=== PATIENT | female | born 1945 | race Caucasian/White ===

== ENCOUNTER → 2018-12-16 | Outpatient (CLI) | payer OTHER ==
[~2018-12-16] MED LIST: ADULT LOW DOSE81 MG PO; ALPRAZOLAM; B COMPLEX-VITA1 EACH PO; BYSTOLIC 5 MG5 M1 PO; CALCIUM PO; FLUOXETINE HCL20 M1 PO; MULTIVITAMINS; NORVASC PO; PROZAC 20 MG20 M1 PO; VITAMIN B-12500 MCG PO; VITAMIN D400 UNI1 PO; VITAMINC500 PO; blood pressure
--- NOTE | 2018-12-16 14:32 | CARDNUC ---
[place] [address] CARDIAC NUCLEAR IMAGING REPORT Name: WILIRALPH Loli Room: [facility]#: [id number] Admission: 12/16/18 Attend Phys: Zac Peters, Discharge: Date of : 41 Date of Service: 12/16/18 1432 Report #: [id number] THIS REPORT FOR: //name// APPROVED REPORT Imaging Protocol: Rest Tc-99m/Stress Tc-99m 1 day Study performed: 12/16/2018 07:30:00 Indication: CAD Patient Location: Out-Patient Stress Tech: Hallie Laguna Stress Nurse: Aleyda Paul RN NM Tech:NAOMIE Frausto Ht: 5 ft 2 in Wt: 122 lbs BSA: 1.55 m2 BMI: 22.31 Medical History Medical History: CAD non obstructive, Fatigue, HTN, Hyperlipidemia, Palpitations. Medications: Bystolic, Losartan K+, HCTZ, ASA 81 mg, Atorvastatin. Allergies: No known drug allergies Cardiac Risk Factors: Age, , FHX of CAD, HTN, Hyperlipidemia. Previous Cardiac Procedures: None Pretest Chest Pain Characteristics: No chest pain Exercise History: Indeterminate Physical Disabilities: Back Meds Held (24 hrs): Bystolic Resting Data Rest SPECT myocardial perfusion imaging was performed in supine position 30 minutes following the intravenous injection of 11.0 mCi of Tc-99m Sestamibi. Time of rest injection: 0750 Date: 12/16/2018 Time of rest imagin The images were gated to evaluate regional wall motion and calculate left ventricular ejection fraction. Administration Route: IV Administration Site: Right Arm Pharmacologic Stress Pharmacologic stress test was performed by injecting Regadenoson 0.4 mg IV push over 10-15 seconds immediately followed by the intravenous injection of 33.9 [place] [address] CARDIAC NUCLEAR IMAGING REPORT Name: RALPH RASHEED Room: [facility] Pate#: [id number] Admission: 12/16/18 Attend Phys: Zac Peters, Discharge: Date of : 41 Date of Service: 12/16/18 1432 Report #: [id number] Tc-99m Sestamibi. Time of stress injection: 0935 Time of stress imagin Administration Route: IV Administration Site: Right Arm Gated Stress SPECT was performed 40 minutes after stress injection. The images were gated to evaluate regional wall motion and calculate left ventricular ejection fraction. Prone imaging was performed. Stress Test Details Stress Test: Pharmacologic stress was paired with low level exercise. Reason for pharmacologic stress test: Arthritis.. HR Max Heart Rate (APMHR): 145 bpm Resting HR: 64 bpm Target HR (85% APMHR): 123 bpm Max HR Achieved: 103 bpm % of APMHR: 71 Recovery HR: 75 bpm BP Resting BP: 151/75 mmHg Max BP: 126/67 mmHg Recovery BP: 131/68 mmHg ECG Resting ECG: Sinus Rhythm, nonspecific ST-T abnormalities Stress ECG: Sinus Rhythm, nonspecific ST-T abnormalities ST Change: None Arrhythmia: None Recovery ECG: Sinus Rhythm, nonspecific ST-T abnormalities Recovery ST Change: None Recovery Arrhythmia: None Clinical Reason for Termination: Completed protocol Stress Symptoms: [place], lightheaded, stomach fullness. Exercise duration: 4 min 00 sec Exercise capacity: 2.30 METs The patient had no significant cardiac symptoms with Lexiscan infusion. Nurse Comments 73 year old female presented with HX of heart palpitations. Patient able to walk a slow, flat treadmill with Lexiscan for four minutes. [place] [address] CARDIAC NUCLEAR IMAGING REPORT Name: RALPH RASHEED Room: [facility]#: [id number] Admission: 12/16/18 Attend Phys: Zac Peters, Discharge: Date of : 41 Date of Service: 12/16/18 1432 Report #: [id number] Lexiscan. Symptoms relieved with PO caffeine. Recovery unremarkable. Patient escorted by staff to Nuclear Medicine for images. Patient stable with no complaints at that time. Stress ECG Conclusion The baseline 12-lead EKG shows sinus rhythm with diffuse ST segment depression. EKGs obtained during and post Lexiscan infusion show sinus rhythm with persistent diffuse ST segment depression. There were no stress-induced arrhythmias. Study Quality Study: Good Artifact: No artifact Study Data At rest, the left ventricular ejection fraction was 78%.. Post stress, the left ventricular ejection was 73%.. TID = 1.01. Perfusion Normal left ventricular perfusion. Wall Motion Normal left ventricular wall motion. Nuclear Conclusion ECG Findings: non-diagnostic Clinical Findings: negative for ischemia Nuclear Findings: negative for ischemia Exercise Capacity: not assessed Left Ventricular Function: normal Risk Study: low Myocardial perfusion images show no defect to suggest infarct or ischemia. Left ventricular systolic function appears normal on gated studies. This is a low risk study. <Conclusion> The baseline 12-lead EKG shows sinus rhythm with diffuse ST segment depression. EKGs obtained during and post Lexiscan infusion show sinus rhythm [place] [address] CARDIAC NUCLEAR IMAGING REPORT Name: RALPH RASHEED Room: [facility]#: [id number] Admission: 12/16/18 Attend Phys: Zac Peters, Discharge: Date of : 41 Date of Service: 12/16/18 1432 Report #: [id number] segment depression. There were no stress-induced arrhythmias. <ELECTRONICALLY SIGNED> By: Zac Peters MD, [facility] 12/16/18 1432 [id number] Zac Peters MD, FACC /INF
== END ==
LOC: M.NUC 12-05 13:28
DX: I25.10 Atherosclerotic heart disease of native coronary artery without angina pectoris (principal)